=== PATIENT | male | born 1970 | race Caucasian/White ===

== ENCOUNTER 2023-05-23 14:54 | Inpatient (IN) | payer OTHER ==
[~2023-05-23] VITALS: Ht 177.8 cm; Wt 79.6 kg
[2023-05-23] VITALS (14 sets, daily range): BP systolic 112–134; BP diastolic 77–96
[2023-05-23 15:26] LABS: BASOPHILS ABSOLUTE AUTO 0.12 K/mm3 (0.00-0.23); BASOPHILS PERCENT AUTO 1 % (0-2); EOSINOPHILS ABSOLUTE AUTO 0.15 K/mm3 (0.00-0.68); EOSINOPHILS PERCENT AUTO 2 % (0-6); Hematocrit 48.9 % (37.0-53.0); Hemoglobin 16.7 g/dL (13.5-17.5); IMMATURE GRAN ABSOLUTE AUTO 0.04 K/mm3 (0.00-0.10); IMMATURE GRAN PERCENT AUTO 0 % (0-1); LYMPHOCYTES ABSOLUTE AUTO 2.03 K/mm3 (0.84-5.20); LYMPHOCYTES PERCENT AUTO 21 % (21-46); MONOCYTES ABSOLUTE AUTO 1.02 K/mm3 (0.16-1.47); MONOCYTES PERCENT AUTO 11 % (4-13); Mean Corpuscular HGB 31.4 pg (26.0-34.0); Mean Corpuscular HGB Conc 34.2 g/dL (31.5-36.5); Mean Corpuscular Volume 92 fL (80-100); Mean Platelet Volume 9.2 fL (9.1-12.4); NEUTROPHILS ABSOLUTE AUTO 6.32 K/mm3 (1.96-9.15); NEUTROPHILS PERCENT AUTO 65 % (41-73); Platelet Count 272 K/mm3 (150-400); RDW Coefficient Variation 14.4 % (11.7-14.2); Red Blood Cell Count 5.32 M/mm3 (4.30-5.90); White Blood Cell Count 9.68 K/mm3 (4.00-11.30)
[2023-05-23 15:53] LABS: Albumin, Blood 3.9 g/dL (3.4-5.0); Bilirubin, Total 0.5 mg/dL (0.1-1.0); Bun/Creatinine Ratio 10.6 (12.0-20.0); Calcium, Blood 8.7 mg/dL (8.5-10.1); Creatinine, Blood 0.75 mg/dL (0.60-1.20); Globulin, Blood 3.9 g/dL (2.2-4.0); Potassium, Blood 4.3 mmol/L (3.5-5.5); Total Protein, Blood 7.8 g/dL (6.4-8.2)
[2023-05-23] MEDS ORDERED: CHLO25 PO (17:50)
[2023-05-23] MEDS ORDERED: IBUP800 PO (17:51)
[2023-05-23 19:34] LABS: International Normalized Ratio 0.96; Prothrombin Time Results 10.1 Sec (9.7-11.5)
--- NOTE | 2023-05-23 20:42 | NUR ---
PATIENT ARRIVED TO ICU 9 VIA GURNEY FROM ED. PATIENT TRANSFER TO BED WITH SLIDER SHEET AND PLACED ON ICU MONITORS. PATIENT AWAKE AND A&O. VERBALIZED THAT HE IS FEELING VERY ANXIOUS. TREMOR SEEN TO BOTH ARMS WITH MOVEMENT, BUT ABLE TO HOLD GLASS AND ASSIST WITH REPOSITIONING. DIAPHORETIC SKIN WARM TO TOUCH. CIWA 20, MEDICATED WITH ATIVAN AND LIBRIUM. PRECEDEX ORDER IF NEEDED.
[2023-05-23] MEDS ORDERED: B-1100 M1 PO (21:19)
[2023-05-24] VITALS (26 sets, daily range): BP systolic 101–142; BP diastolic 69–102
[2023-05-24 04:08] LABS: Albumin, Blood 3.1 g/dL (3.4-5.0); Albumin/Globulin Ratio 1.1 (0.8-1.8); Bilirubin, Total 0.8 mg/dL (0.1-1.0); Calcium, Blood 8.1 mg/dL (8.5-10.1); Creatinine, Blood 0.85 mg/dL (0.60-1.20); Globulin, Blood 2.8 g/dL (2.2-4.0); Magnesium, Blood 2.3 mg/dL (1.6-2.4); Total Protein, Blood 5.9 g/dL (6.4-8.2)
--- NOTE | 2023-05-24 06:38 | NUR ---
SUMMARY PATIENT SLEEPING MOST OF THE NIGHT. AWAKENS TO SLIGHT STIMULI, VERBALIZED "I FEEL AWFUL". CONTINUES TO BE WARM AND DIAPHORETIC. MEDICATED WITH ATIVAN AND LIBRIUM T/O NIGHT. PRECEDEX HAS NOT BEEN STARTED YET. PATIENT HAS NOT HAD ANY URINE OUTPUT AT THIS TIME, VERBALIZED NO URGE TO VOID AT THIS TIME.
--- NOTE | 2023-05-24 07:00 | NUR ---
ASSUMPTION OF CARE PT WAKENS TO VERBAL STIMULI. HE REPORTS WANTING MORE REST. NS INFUSING AT 125ML/HR. NSR ON MONITOR WITH RATE IN 80S, BP STABLE. HE IS ON RA WITH SPO2 >95%. BED IN LOW POSITION, BED ALARM ON, CALL LIGHT WITHIN REACH.
--- NOTE | 2023-05-24 11:00 | NUR ---
UPDATE PT ATE MOST OF BREAKFAST. HE REPORTS FEELING DROWSY. CIWA SCORE 12, MEDICATED PER EMAR. PT PARTICIPATES IN CONVERSATION. HE STS HE HAS QUIT DRINKING IN THE PAST AND WAS SOBER FOR 6 YEARS. HE REPORTS WANTING TO QUIT AGAIN AND VERBALIZES HIS FRIEND HAS BEEN HELPING HIM SET UP INPATIENT TREATMENT.
--- NOTE | 2023-05-24 16:42 | NUR ---
SHIFT SUMMARY PT HAS BEEN DROWSY FOR MOST OF THE DAY. CIWA SCORES 5-12. PT ENCOURAGED TO PERFORM ADLS THROUGHOUT THE DAY. PT HAS VERBALIZED MULTIPLE TIMES THAT HE IS READY TO STOP DRINKING ALCOHOL AND WANTS TO GO TO INPATIENT TREATMENT. HE STS HE HAS RECEIVED INPATIENT TREATMENT BEFORE. HIS FRIEND NAMED MIKE HELPED HIM CALL AROUND AND THERE IS AN OPENING AT [facility] IN [place] ON WEDNESDAY. PT STS HE DOES NOT HAVE ANY MORE INFORMATION THAN THAT AND DOES NOT KNOW IF HIS FRIEND WILL BE ABLE TO DRIVE HIM. SINUS RHYTHM ON MONITOR WITH RATE IN 70S-80S. BP STABLE THROUGHOUT THE SHIFT. PT TOLERATING MEALS WELL. HE HAS VOIDED TWICE. PT CURRENTLY SITTING IN RECLINER, CALL LIGHT WITHIN REACH.
--- NOTE | 2023-05-24 18:53 | NUR ---
[facility] INFORMATION FRIEND MIKE ALBRECHT CALLED FOR UPDATE AND TO PROVIDE INFO. HE STS HE RECEIVED A PHONE CALL FROM PT ASKING FOR HELP AND PICKED PT UP FROM A [facility] IN [place]. FRIEND ASSISTED PT WITH CALLING AND SEEKING INPATIENT TREATMENT. HE STS [facility] IN [place] WILL INTAKE PT ON SUNDAY 05/27 AT 0800. MIKE PIMENTEL HE CAN TAKE PT TO [facility] IF PT IS MEDICALLY STABLE. FRIEND IS VERY SUPPORTIVE. PT IS OPEN TO OTHER INPATIENT OPTIONS IN [place] SUCH [facility]. MIKE ALBRECHT- [phone]
--- NOTE | 2023-05-24 23:23 | NUR ---
AT 1999 PATIENT AWAKE AND FEELING ANXIOUS. C/O ABD CRAMPING. UP TO TOILET TWICE PASSING SOFT FORMED STOOL, ABLE TO CLEAN SELF. SLIGHTLY UNSTEADY ON FEET WHEN UP, PATIENT AGREEING TO CALL FOR ASSISTANCE WHEN GETTING UP TO PREVENT FALL. PATIENT MEDICATED WITH LIBRIUM AND ATIVAN WITH GOOD RESULTS, SEE CIWA. PATIENT NOW RESTING QUIETLY APPEARS TO BE SLEEPING. BED ALARM ON.
[2023-05-25] VITALS (29 sets, daily range): BP systolic 111–166; BP diastolic 80–117
[2023-05-25 03:32] LABS: Hematocrit 41.1 % (37.0-53.0); Hemoglobin 14.1 g/dL (13.5-17.5)
[2023-05-25 03:57] LABS: Albumin, Blood 2.9 g/dL (3.4-5.0); Albumin/Globulin Ratio 0.9 (0.8-1.8); Bilirubin, Total 0.7 mg/dL (0.1-1.0); Bun/Creatinine Ratio 13.5 (12.0-20.0); Calcium, Blood 8.3 mg/dL (8.5-10.1); Creatinine, Blood 0.81 mg/dL (0.60-1.20); Globulin, Blood 3.2 g/dL (2.2-4.0); Potassium, Blood 3.9 mmol/L (3.5-5.5); Total Protein, Blood 6.1 g/dL (6.4-8.2)
--- NOTE | 2023-05-25 05:48 | NUR ---
SUMMARY PATIENT SLEEPING OFF AND ON T/O NIGHT. MEDICATED WITH LIBRIUM AND ATIVAN FOR CIWA RANGING 4-15. UP IN ROOM WITH MOD ASSIST DUE TO POOR BALANCE. USING CALL LIGHT AND COOPERATIVE WITH CARE.
--- NOTE | 2023-05-25 12:38 | NUR ---
REASSESSMENT PT HAS BEEN RESTING IN BED THROUGHOUT THE MORNING. HE WAKES EASILY TO VOICE, IS ORIENTED TO WHERE HE IS AND SITUATION, BUT WAS UNSURE OF THE DATE. HIS CIWAA HAS BEEN AROUND 15, MEDICATING WITH ATIVAN AND LIBRIUM. LUNGS REMAIN CLEAR, SPO2 97% ON RA. SR. PICKS AT HIS MEAL TRAYS. VOIDS USING THE URINAL IN BED. DR. PETER GAVE OK FOR FOLIC ACID AND THIAMINE TO BE SWITCHED TO PO SINCE PT IS TAKING PILLS.
--- NOTE | 2023-05-25 16:40 | NUR ---
ASSUMPTION OF CARE PATIENT ALERT AND ORIENTED X 4, AFEBRILE. PATIENT HAS VISIBLE TREMOR AND PERSPIRATION. CIWA SCORE OF 10. PATIENT SLIGHTLY ANXIOUS AND REALLY WANTING ANOTHER PIECE OF NICORETTE GUM. PATIENT DEPRESSED. PATIENT STATES HE TRIED HIS MOMS ANTIDEPRESSANTS BACK IN THE DAY BUT HAS NEVER BEEN PRESCRIBED THEM HIMSELF. PATIENT ASKED WHAT FAMILY HE HAS AND PATIENT STATES, "ONLY MY SON AND I DON'T EVEN GET TO SEE THEM". 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 PATIENT WEAK AND UNSTEADY ON FEET. PATIENT 1 PERSON ASSIST FROM CHAIR TO BED AND VICE VERSA. PATIENT SATTING 90% AND GREATER ON RA. LUNGS CLEAR THROUGHOUT. PATIENT IN SR, HR IN THE 60S. SBP IN THE 120S. PATIENT STATES HE HAS VERY SLIGHT NAUSEA. PATIENT USING URINAL FOR ASSISTANCE WITH URINATION. BED LOW, CALL LIGHT IN REACH, BED ALARM ON. CARE CONTINUES.
--- NOTE | 2023-05-25 18:43 | NUR ---
SHIFT SUMMARY PATIENT REMAINED ALERT AND ORIENTED, AFEBRILE. PATIENT HAD NO COMPLAINTS OF PAIN. PATIENT GIVEN PRN ATIVAN OT AND PRN NICORETTE OT. PATIENT REMAINED SATTING 90% AND GREATER ON RA. PATIENT REMAINED SR, HR 60S TO 70S. SBP 1-TEENS TO 120S. NO BM OR VOID SINCE ASSUMED CARE. PATIENT REPOSITIONED SELF IN BED. PATIENT 1 PERSON ASSIST BACK AND FORTH FROM BED AND CHAIR FOR WEAKNESS AND UNSTEADINESS ON FEET. BED LOW, CALL LIGHT IN REACH, BED ALARM ON. REPORT WILL BE GIVEN TO ASSUMING X RAY SERVICE TECHNICIAN NURSE SHORTLY.
--- NOTE | 2023-05-25 19:47 | NUR ---
PATIENT RESTING IN BED, RESTLESS, THINKING HE IS IN A "BUGGY" AND THAT IT NEEDS TO BE CHARGED. PATIENT ABLE TO REMEMBER THAT HE IS IN THE HOSPITAL, MONTH AND DATE. OCCASIONAL MOIST COUGH WITH THICK GREENE SPUTUM, PATIENT USING ORAL SUCTION TO REMOVE SPUTUM. CONTINUING TO MONITOR LABS AND I&O CLOSELY, D5 WITH POTASSIUM CONTINUES
--- NOTE | 2023-05-25 19:55 | NUR ---
PATIENT RESTING QUIETLY AWAKENS TO SLIGHT STIMULI. CONTINUES TO FEEL ANXIOUS WITH GENERALIZED BODY ACHING. TREMOR AND DIAPHORETIC CONTINUE. A&O X3 COOPERATIVE WITH CARE
[2023-05-26] VITALS (20 sets, daily range): BP systolic 99–136; BP diastolic 72–102
--- NOTE | 2023-05-26 05:49 | NUR ---
SUMMARY PATIENT SLEEPING OFF AND ON T/O NIGHT. AT MIDNIGHT PATIENT BECOMING DIAPHORETIC WHILE SLEEPING, AWAKEN TO SLIGHT STIMULI CIWA 18, RELIEVED WITH ATIVAN IV. PATIENT MEDICATED WITH ATIVAN AND LIBRIUM T/O NIGHT CIWA RANGE 6-18. PRECEDEX REMAINS OFF. PATIENT ASKING SEVERAL TIMES TO BE ABLE TO GO OUTSIDE TO SMOKE, RECEPTIVE TO REMINDER THAT HE CONTINUES TO REQUIRE CLOSE MONITORING AND CAN NOT GO OUTSIDE, ALSO THAT THERE IS NO SMOKING ON ENTIRE CAMPUS. USING NICOTINE GUM HELPS WITH CRAVING.
--- NOTE | 2023-05-26 07:00 | NUR ---
INITIAL ASSESSMENT PATIENT RESTING QUIETLY IN BED UPON ENTERING ROOM. PATIENT ALERT AND ORIENTED X 4. SPEECH SLIGHTLY SLURRED AND VERY SOFT AND QUIET. CIWA SCORE OF 9. PATIENT DIAPHORETIC AND TREMULOUS. PATIENT HAS DEPRESSED DEMEANER. PATIENT WEAK AND UNSTEADY ON FEET BUT IS ABLE TO MOVE ALL EXTREMITIES AND REPOSITION SELF IN BED. PATIENT 1 PERSON ASSIST TO CHAIR. PATIENT HAS NO COMPLAINTS OF PAIN. PATIENT SATTING 90% AND GREATER ON RA. LUNGS CLEAR THROUGHOUT. PATIENT IN SR, HR IN THE 60S. SBP IN THE 1-TEENS. PATIENT COMPLAINS OF SLIGHT NAUSEA. WNL. SKIN APPEARS WNL. IV FLUSHED AND SALINE LOCKED. BED LOW, CALL LIGHT IN REACH, BED ALARM ON. CARE CONTINUES.
--- NOTE | 2023-05-26 11:48 | NUR ---
NO COMPLAINTS OF PAIN. AFEBRILE. SATTING 90% AND GREATER ON RA. HR IN THE 60S. SBP IN THE 1-TEENS. CIWA SCORE OF 6. PATIENT SITTING UP EATING LUNCH IN BED. NO ACUTE CHANGES TO NOTE ON AT THIS TIME. CARE CONTINUES.
--- NOTE | 2023-05-26 13:32 | NUR ---
PATIENT'S FRIEND, MIKE, CALLED AND INQUIRING ABOUT HOW PATIENT IS DOING AND IF HE NEEDS TO TAKE PATIENT TO [facility] IN [place] THEY HAVE AN APPOINTMENT FOR DETOX THERE TOMORROW AT 0800. PATIENT GAVE THIS NURSE PERMISSION TO TALK ABOUT PATIENT AND HIS CARE WITH FRIEND MIKE. MIKE UPDATED. MIKE CONCERNED ABOUT RESIDENTIAL TREATMENT FOR PATIENT AFTER DETOX. WORRIES COMMUNICATED TO CARE MANAGEMENT AND DR. SHEPPARD.
--- NOTE | 2023-05-26 13:43 | NUR ---
Pt. is awake in bed when I visit. Pt. displays evidence of being guarded, and somewhat slow to process basic questions. Listen with empathy and a calming presence. Pt. verbalizes that he is not local to our cummunity, but he has just decently moved here because a friend lived here. Sensing the Pt. was not open to furhter spiritual care, I excused myself. Pt. verbalized gratitude for the spiritual care visit.
--- NOTE | 2023-05-26 13:57 | NUR ---
SPOKE WITH CARE MANAGEMENT. UPDATED DR. SHEPPARD AND PATIENT THAT CARE MANAGEMENT STATED PATIENT WOULD HAVE TO BE DISCHARGED WHEN MEDICALLY STABLE AND THEN PATIENT (AND FRIEND IF CHOSE TO) WOULD THEN HAVE TO LOOK IN TO RESIDUAL TREATMENT FACILITIES. CARE MANAGEMENT BROUGHT LIST DOWN TO NURSE TO GIVE TO PATIENT AND FRIENDMIKE, FOR ALCOHOL TREATMENT RESOURCES. CALLED MIKE CLIFFORD, AND LEFT MESSAGE TO CALL NURSE BACK TO UPDATE.
--- NOTE | 2023-05-26 17:03 | NUR ---
PATIENT AFEBRILE. NO COMPLAINTS OF PAIN. HR IN THE 60S. SBP IN THE 120S. CIWA SCORE OF 9. NO ACUTE CHANGES TO NOTE ON AT THIS TIME. CARE CONTINUES.
--- NOTE | 2023-05-26 18:58 | NUR ---
SHIFT SUMMARY PATIENT REMAINED ALERT AND ORIENTED X 4, AFEBRILE. PATIENT DIDN'T HAVE ANY COMPLAINTS OF PAIN UNTIL END OF SHIFT WHEN COMPLAINED OF ABD DISCOMFORT. CIWAS 6 TO 9 THIS SHIFT. PATIENT AMBULATION IMPROVED THIS SHIFT BUT PATIENT IS STILL UNSTEADY AND NEEDS 1 PERSON ASSIST. PATIENT REMAINED SATTING 90% AND GREATER ON RA. PATIENT REMAINED IN SR, HR 60S TO 70S. SBP LOW 100S TO 130S. PATIENT HAD 2 BM THIS SHIFT. WNL. NO CHANGES TO SKIN NOTED. PATIENT UP TO SHOWER ROOM THIS SHIFT. IV SALINE LOCKED. BED LOW, CALL LIGHT IN REACH. REPORT WILL BE GIVEN TO ASSUMING TAR HEATER NURSE.
[2023-05-27 00:10] VITALS: BP 111/77
--- NOTE | 2023-05-27 06:10 | NUR ---
SPOKE WITH MIKE PT FRIEND HELPING WITH COORDINATION OF DETOX CENTER AFTER TREATMENT AT THIS FACILITY. MIKE IS WANTING PT TO LEAVE AMA TO GO TO A TREATMENT FACILITY THIS AM AT 0800. PT REPORTS TALKING TO THE DETOX FACILITY AND THEY ARE RECOMMENDING THAT THE PATIENT STAY AND FINISH TREATMENT AT THIS FACILITY. THEY ARE NOT RECOMMENDING PT LEAVE AMA TO GO TO THEIR FACILITY.
--- NOTE | 2023-05-27 06:26 | NUR ---
PT A/O X4. CIWA STILL AVERAGING AROUND 9. TREMORS AND SWEATING. NO HALLUCINATIONS THIS SHIFT. PT GOT OUT OF BED LAST NIGHT AND URINATED ON THE FLOOR. BED ALARM ON AND CALL LIGHT WITHIN REACH. VITALS STABLE AND WNL. LARGE BM AT 1900 05/26/23. SALINE LOCKED. CONTINUING TO MONITOR UNTIL REPORT GIVEN TO AM RN.
[2023-05-27 08:00] VITALS: BP 143/94
[2023-05-27 12:00] VITALS: BP 139/103
[2023-05-27 16:00] VITALS: BP 122/94
--- NOTE | 2023-05-27 16:31 | NUR ---
SUMMARY PT A/O X4 TODAY. SLEPT MOST OF THE DAY. MORE STEADY, LESS TREMULOUS. ABLE TO SIT AT SIDE OF BED FOR MEALS. REPOSITIONS SELF IN BED. SEE CIWA SCORING. TOLERATING MEALS WELL. TRANSFERING TO MEDICAL FLOOR ROOM 344. REPORT GIVEN TO REBECA ROLDAN.
[2023-05-27 17:00] VITALS: BP 128/94
[2023-05-27 21:43] VITALS: BP 106/82
[2023-05-28 05:36] VITALS: BP 118/91
--- NOTE | 2023-05-28 05:51 | NUR ---
SHIFT SUMMERY, PT RESTING IN BED, PT GIVEN MED FOR ETOH WITHDRAWL. PT HAVING SLIGHT SHAKES , LIGHT SENSITIVE , NOISE SENSITIVE, ANXIOUS. BUT NO HALUCINATIONS VISUAL OR AUDITORY. PT GOING BACK TO SLEEP NOW CALL LIGHT IN REACH BED ALARM ON. PT HAS BEEN SLEEPING COMFORTAABLY MOST OF THE NIGHT.
[2023-05-28 06:54] LABS: Albumin, Blood 3.3 g/dL (3.4-5.0); Bilirubin, Total 0.2 mg/dL (0.1-1.0); Calcium, Blood 8.6 mg/dL (8.5-10.1); Globulin, Blood 3.3 g/dL (2.2-4.0); Potassium, Blood 3.7 mmol/L (3.5-5.5); Total Protein, Blood 6.6 g/dL (6.4-8.2)
[2023-05-28 07:17] VITALS: BP 124/88
[2023-05-28 14:39] VITALS: BP 116/87
--- NOTE | 2023-05-28 17:38 | NUR ---
SHIFT SUMMARY A&O X 4, VSS. IS PLEASANT & COOPERATIVE WITH ALL CARE. SIWA'S 6. MEDICATED PER EMAR FOR ETOH WD WITH GOOD EFFECT. PT USES RESTROOM WITH STDBY ASSIST. OTHERWISE HAS RESTED QUIETLY WITH EYES CLOSED, RESP EVEN & UNLABORED. APPETITE IS GOOD. NEW PIV STARTED FOR C/O PAIN WITH L AC IV PLACED IN ED. NEW PIV PLACED IN L FA WITH 20G X 1 ATTEMPT. SPEECH IS MUMBLED THOUGH IS ABLE TO MAKE NEEDS KNOWN. BED IN LOW POSITION & CALL LIGHT WITHIN REACH.
[2023-05-28 19:33] VITALS: BP 132/89
--- NOTE | 2023-05-29 03:44 | NUR ---
SHIFT SUMMARY BEGINNING OF SHIFT PT ASKED FOR ATIVAN AND LIBRIUM. PT MEDICATED PER EMAR. PT HAS BEEN SLEEPING MOST OF THE NIGHT SINCE THAT TIME. PT CWA SCORE BETWEEN 4-6. LAST SCORE WAS 5. PT GETS UP TO THE RESTROOM ON HIS OWN. PREFERS TO HAVE HIS DOOR SHUT TOO MUCH NOISE BOTHERS HIM. PT HAS CALL LIGHT WITHIN HIS REACH.
[2023-05-29 05:26] VITALS: BP 115/82
[2023-05-29 07:18] VITALS: BP 123/94
[2023-05-29 07:19] LABS: Bun/Creatinine Ratio 13.7 (12.0-20.0); Calcium, Blood 8.8 mg/dL (8.5-10.1); Creatinine, Blood 1.02 mg/dL (0.60-1.20); Magnesium, Blood 2.4 mg/dL (1.6-2.4); Phosphorus, Blood 3.1 mg/dL (2.5-4.9); Potassium, Blood 3.9 mmol/L (3.5-5.5)
[2023-05-29 14:49] VITALS: BP 126/86
--- NOTE | 2023-05-29 18:10 | NUR ---
SHIFT SUMMARY PATIENT IS ALERT AND ORIENTED. PATIENT HAS HAD NO ACUTE EVENTS THIS SHIFT. VITAL SIGNS REVIEWED. PATIENT HAS HAD NO COMPLAINTS OF PAIN, NAUSEA, SOB OR VOMITTING. PATIENT HAS BEEN MEDICATED FOR CIWA SCORES OF 5-6. PATIENT HAS BEEN ASKING FOR LIBRIUM AND ATIVAN, ALTERNATING. ADJUSTED LIBRIUM TAPER FOR PATIENT. BED IN LOCKED AND LOWEST POSITION. CALL LIGHT IN PLACE. WILL MONITOR UNTIL SHIFT CHANGE.
[2023-05-29 21:16] VITALS: BP 115/75
--- NOTE | 2023-05-30 04:24 | NUR ---
SHIFT SUMMARY PT HAS BEEN SLEEPING OFF AND ON THROUGHOUT THE NIGHT. PT HAS HAD ONE DOSE OF ATIVAN SO FAR THIS SHIFT. PT MOST RECENT CWA WAS A 6. PT CURRENTLY ASLEEP AND HAS NO NEEDS AT THIS TIME. CALL LIGHT IS WITHIN PT REACH.
[2023-05-30 06:20] LABS: Bun/Creatinine Ratio 14.1 (12.0-20.0); Calcium, Blood 8.8 mg/dL (8.5-10.1); Creatinine, Blood 0.92 mg/dL (0.60-1.20); Magnesium, Blood 2.4 mg/dL (1.6-2.4); Phosphorus, Blood 4.5 mg/dL (2.5-4.9)
[2023-05-30 06:27] VITALS: BP 108/77
[2023-05-30 07:09] VITALS: BP 115/87
--- NOTE | 2023-05-30 17:50 | NUR ---
PT AOX4 AND COOPERATIVE OF CARE. PT DOING WELL ONE CIWA OF 3. PT IS GOOD ABOUT LETTING CAREGIVERS KNOW WHEN HE IS FEELING WITHDRAWL SYMTOMS. PT AMBULATED UP AN DOWN THE [place] ONCE TODAY. NO DISTRESS NOTED WILL CONTINUE TO MONITOR. CALL LIGHT IS WITHIN REACH.
[2023-05-30 19:35] VITALS: BP 101/71
[2023-05-31 04:44] VITALS: BP 108/74
--- NOTE | 2023-05-31 05:06 | NUR ---
SHIFT SUMMARY PT COOPERATIVE AND PLEASANT. PTS MOST RECENT CWA WAS 6. PT WAS MEDICATED PER EMAR AT THAT TIME. PT SLEEPING OFF AN ON THROUGHOUT THE NIGHT. PT RECENTLY ASKED FOR HIS LIBRIUM. DRYWALL PROFESSIONAL HAD WOKEN PT TO GET VITALS. THIS RN WENT TO TALK TO PT AND HE WAS BACK TO SLEEP. CALL LIGHT IS WITHIN REACH. WILL CONTINUE TO MONITOR.
[2023-05-31 06:19] LABS: BASOPHILS ABSOLUTE AUTO 0.11 K/mm3 (0.00-0.23); BASOPHILS PERCENT AUTO 2 % (0-2); EOSINOPHILS ABSOLUTE AUTO 0.19 K/mm3 (0.00-0.68); EOSINOPHILS PERCENT AUTO 3 % (0-6); Hematocrit 45.7 % (37.0-53.0); Hemoglobin 15.8 g/dL (13.5-17.5); IMMATURE GRAN ABSOLUTE AUTO 0.06 K/mm3 (0.00-0.10); IMMATURE GRAN PERCENT AUTO 1 % (0-1); LYMPHOCYTES ABSOLUTE AUTO 1.83 K/mm3 (0.84-5.20); LYMPHOCYTES PERCENT AUTO 26 % (21-46); MONOCYTES ABSOLUTE AUTO 0.72 K/mm3 (0.16-1.47); MONOCYTES PERCENT AUTO 10 % (4-13); Mean Corpuscular HGB 31.7 pg (26.0-34.0); Mean Corpuscular HGB Conc 34.6 g/dL (31.5-36.5); Mean Corpuscular Volume 92 fL (80-100); Mean Platelet Volume 9.7 fL (9.1-12.4); NEUTROPHILS ABSOLUTE AUTO 4.09 K/mm3 (1.96-9.15); NEUTROPHILS PERCENT AUTO 58 % (41-73); Platelet Count 327 K/mm3 (150-400); RDW Coefficient Variation 13.4 % (11.7-14.2); Red Blood Cell Count 4.99 M/mm3 (4.30-5.90)
[2023-05-31 06:40] LABS: Bun/Creatinine Ratio 13.1 (12.0-20.0); Creatinine, Blood 0.91 mg/dL (0.60-1.20)
[2023-05-31 07:26] VITALS: BP 99/69
--- NOTE | 2023-05-31 18:24 | NUR ---
SHIFT SUMMARY: Pt remains A&Ox4 this shift. Calm and cooperative with care. VSS. Resp even nonlabored on RA. Ambulating independently in the hallway. PRN IV Ativan effective for anxiety. Pain and safety maintained. No c/o verbalized. Will continue to follow this shift.
[2023-05-31 21:30] VITALS: BP 111/78
[2023-06-01 04:54] VITALS: BP 113/75
--- NOTE | 2023-06-01 04:59 | NUR ---
SHIFT SUMMARY PT HAS BEEN SLEEPING MOST OF THE NIGHT WITH NO COMPLAINTS. PT AWOKEN BY CENTRAL SUPPLY AIDE THIS AM AND PT AWOKE ASKING FOR ATIVAN. WILL MEDICATE PER EMAR. CALL LIGHT IS WITHIN PT REACH.
[2023-06-01 06:16] LABS: Bun/Creatinine Ratio 13.4 (12.0-20.0); Calcium, Blood 8.9 mg/dL (8.5-10.1); Creatinine, Blood 1.12 mg/dL (0.60-1.20); Potassium, Blood 4.1 mmol/L (3.5-5.5)
[2023-06-01 07:20] VITALS: BP 103/77
[2023-06-01 17:03] VITALS: BP 111/82
--- NOTE | 2023-06-01 17:23 | NUR ---
SHIFT SUMMARY CIWAS STABLE T/O SHIFT. THIS AFTERNOON PT IS MORE ANXIOUS AND CIWA INCREASED TO 8. TREATED WITH ATIVAN ORDERED. PT SHOWERED TODAY. IND IN ROOM. CALL LIGHT IN REACH. AWAITING PLACEMENT FOR DRUG ALCOHOL TREATMENT. NO OTHER ACUTE CHANGES IN ASSESSMENT AT THIS TIME. VS REVIEWED. CALL LIGHT IN REACH.
[2023-06-01 19:19] VITALS: BP 108/76
[2023-06-02 04:03] VITALS: BP 127/90
[2023-06-02 05:56] LABS: Bun/Creatinine Ratio 13.5 (12.0-20.0); Calcium, Blood 8.6 mg/dL (8.5-10.1); Creatinine, Blood 1.11 mg/dL (0.60-1.20); Magnesium, Blood 2.5 mg/dL (1.6-2.4); Potassium, Blood 4.1 mmol/L (3.5-5.5)
--- NOTE | 2023-06-02 06:40 | NUR ---
SHIFT SUMMARY: PT IS ADMITTED FOR ETOH WITHDRAWAL AND IS A DNR. IS ALERT AND ABLE TO MAKE NEEDS KNOWN. ADLIB FOR ADLs. DENIES PAIN OR DISCOMFORT WHEN ASKED. IV TO RIGHT FOREARM IS PATENT WITH A DRESSING THAT IS CDI. ATIVAN GIVEN X1 WITH CIWA SCORE 13
[2023-06-02 07:21] VITALS: BP 121/79
[2023-06-02 15:49] VITALS: BP 110/74
--- NOTE | 2023-06-02 16:57 | NUR ---
SHIFT SUMMARY- PT IS A/O, PLESANT AND COOPERATIVE. HE IS EATING AND DRINKING WELL. HE IS AMBULATING TO THE RESTOOM. STABLE WITHDRAWL. HIS BED IS IN THE LOW POSITON AND CALL LIGHT IS WITIN REACH.
[2023-06-02 19:18] VITALS: BP 116/80
[2023-06-03 05:58] VITALS: BP 91/61
--- NOTE | 2023-06-03 06:24 | NUR ---
SHIFT SUMMARY: PT IS ADMITTED FOR ETOH WITHDRAWAL AND IS A DNR. IS ALERT AND ABLE TO MAKE NEEDS KNOWN. ADLIB FOR ADLs. DENIES PAIN OR DISCOMFORT WHEN ASKED. IV TO RIGHT FOREARM IS PATENT WITH A DRESSING THAT IS CDI.
[2023-06-03 16:57] VITALS: BP 109/77
--- NOTE | 2023-06-03 18:10 | NUR ---
SHIFT SUMMARY: PT A/O X 4 IND IN ROOM, PLEASANT AND COOPERATIVE WITH CARE. PT EATING WELL, NO ETOH WITHDRAWAL SYMTPOMS AT THIS TIME. TOLERATING LIBRIUM TAPER. PT PREFERS TO GO TO REHAB FROM HOSPITAL BUT DID STATE HE HAS A "SAFE FRIEND TO GO STAY WITH IF NEEDED."
[2023-06-03 19:59] VITALS: BP 106/76
--- NOTE | 2023-06-04 05:05 | NUR ---
SHIFT SUMMARY 53 YR M ADMITTED ON 05/23/23 FOR ALCOHOL WITHDRAWL. DNR. NO ACUTE CHANGES THIS SHIFT. PT IS PLEASANT AND COOPERATIVE AND HAS SLEPT FOR MOST OF THIS SHIFT. NO S/S OF WITHDRAWL THIS SHIFT.
[2023-06-04 05:13] VITALS: BP 100/82
[2023-06-04 07:26] VITALS: BP 95/67
--- NOTE | 2023-06-04 15:20 | NUR ---
"Spiritual Care Visit | Nurse recommendation Pt. is awake in bed and welcomes my visit. This thread reeler had seen this pt. previously. Pt. display evidence of awareness and engagement. Pt. displayed evidence of trust. A Rapid was called so this thread reeler had to excuse himself. Pt. verbalized gratitude for the spiritual care visit and welcomed this thread reeler to return."
[2023-06-04 15:48] VITALS: BP 112/77
--- NOTE | 2023-06-04 17:23 | NUR ---
SHIFT SUMMARY: PT A/O X 4 IND IN ROOM, PLEASANT AND COOPERATIVE WITH CARE. PT HAS GOOD APPETITE, NO COMPLAINTS THROUGHOUT THE DAY. TOLERATING LIBRIUM TAPER.
[2023-06-04 19:15] VITALS: BP 113/73
[2023-06-05 03:06] VITALS: BP 111/78
[2023-06-05 07:56] VITALS: BP 86/63
[2023-06-05 08:36] VITALS: BP 97/66
[2023-06-05 15:41] VITALS: BP 95/75
--- NOTE | 2023-06-05 16:04 | NUR ---
SHIFT SUMMARY: NO NEW ACUTE CHANGES IN PATIENT CONDITION THIS SHIFT. PATIENT A/OX4, CALM, PLEASANT, COOPERATIVE c CARE AND INDEPENDENT IN ROOM. PATIENT HAS NO S/S OF ETOH WITHDRAWAL THIS SHIFT. PATIENT DENIES CP/PRESSURE, N/V, SOB AND DIZZINESS. SBP IN THE 90'S, BUT STABLE. PATIENT HAS EXCELLENT APPETITE AND NO COMPLAINTS OR NEW CONCERNED THIS SHIFT. PATIENT RECEIVED SCHEDULED MEDS PER EMAR, PIV TO R FOREARM SALINE LOCKED, DRESSING CDI. CALL LIGHT IN REACH.
[2023-06-05 20:08] VITALS: BP 104/73
[2023-06-06 03:45] VITALS: BP 99/74
--- NOTE | 2023-06-06 04:25 | NUR ---
SHIFT SUMMARY A/OX4. ABLE TO MAKE NEEDS KNOWN. TOLERATING LIBRIUM TAPER. NICOTINE GUM GIVEN X1. SBA TO BATHROOM. CALL LIGHT IN REACH. BED LOCKED IN LOW POSITION. NO CONCERNS AT THIS TIME.
[2023-06-06 07:36] VITALS: BP 96/64
[2023-06-06] MEDS ORDERED: SERT25 PO (12:08)
[2023-06-06] MEDS ORDERED: CHLO25 PO ×2 (12:10→12:14)
[2023-06-06] MEDS ORDERED: ONE DAILY MUL400 MCG PO (12:11)
--- NOTE | 2023-06-06 13:10 | NUR ---
SHIFT/DISCHARGE SUMMARY: PATIENT A/OX4, PLEASANT AND COOPERATIVE c CARE. PATIENT USES CALL LIGHT APPROPRIATELY AND ABLE TO MAKE NEEDS KNOWN. PATIENT DENIES CP/PRESSURE, SOB, N/V AND GENERALIZED PAIN. NO S/S OF ETOH WITHDRAWAL THIS SHIFT. PATIENT TOOK A SHOWER THIS AM AND HAS BEEN INDEPENDENT IN ROOM. PATIENT RECEIVED LIBRIUM DOSE THIS AM AND TOLERATED WELL. PATIENT RECEIVED ONE DOSE OF NICORETTE GUM. VITAL SIGNS REVIEWED. PIV TO R ZARA MONTES'D. PATIENT ON LIBRIUM TAPER AND NEXT SCHEDULED DOSE AT 1400, PATIENT REQUESTED IF IT IS OKAY TO HAVE HIS FRIEND MIKE WILL GIVE HIM HIS DOSE AT 1400. THIS RN SPOKE TO DR. VASQUEZ REGARDING THIS REQUEST. PER DR. VASQUEZ THAT IS TOTALLY OKAY. PATIENT DISCHARGE HOME. DISCHARGE INSTRUCTIONS PACKET GIVEN TO PATIENT. EDUCATE PATIENT AND MIKE AT BEDSIDE REGARDING ADMITTING DX'S OF ETOH WITHDRAWAL, S/S, TX, TO HAVE INPERSON INTAKE AT [facility] TOMORROW FOR ALCOHOL REHAB, TO TAKE HIS LIBRIUM TAPER, SELF CARE AND TO FOLLOW UP c PCP. PATIENT AND MIKE VERBALIZED UNDERSTANDING AND NO FURTHER QUESTIONS. RX WAS FAXED TO [facility]. PATIENT HOME MEDS 16 TABS OF LIBRIUM, A BOTTLE OF IBUPROFEN, A BOTTLE OF THIAMINE, 3 PACKS OF CIGARETTE AND A RECREATION THERAPY DIRECTOR RETURN TO THE PATIENT. PATIENT OFFERED TO BE TRANSPORTED VIA WHEELCHAIR, BUT DECLINED. PER PATIENT "I WANT TO WALK AND DON'T WANT WHEELCHAIR. I HAVE BEEN SITTING AND LAYING IN THIS BED I WANNA WALK, BUT THANK YOU ANYWAY FOR THE OFFER. I APPRICIATE IT." ALL PATIENT PERSONAL BELONGINGS WERE SENT HOME c THE PATIENT. PATIENT LEFT THE ROOM AT AROUND 1310 AND ACCOMPANIED BY A FRIEND MIKE.
== END 2023-06-06 12:55 | disposition home or self-care (01) | DRG 897 ==
LOC: ER 14:54 → MEDS 18:35 → ICUE 18:35 → MEDS 05-27 16:55
PROVIDERS: Hospitalist; Internal Medicine; Student in an Organized Health Care Education/Training Program; ADMIT Hospitalist
PROC: HZ2ZZZZ Detoxification Services for Substance Abuse Treatment (ICD-10-PCS; principal; 2023-05-23)
DX: F10.239 Alcohol dependence with withdrawal, unspecified (principal); I10 Essential (primary) hypertension; F32.A Depression, unspecified; Z66 Do not resuscitate; K70.10 Alcoholic hepatitis without ascites; Z51.5 Encounter for palliative care; F17.210 Nicotine dependence, cigarettes, uncomplicated; Z90.89 Acquired absence of other organs; Z88.0 Allergy status to penicillin; Z79.899 Other long term (current) drug therapy; Z71.6 Tobacco abuse counseling
CPT/HCPCS: 36415; 80048; 80053; 82140; 83690; 83735; 84100; 85014; 85018; 85025; 85610; 96374; 96376; 97110; 97112; 97116; 97162; 97165; 97530; 97535; 99285-25; A9270; J1650; J2060; J3411; J7030; J7050